=== PATIENT | male | born 1990 | race Caucasian/White ===

== ENCOUNTER 2023-05-05 14:46 | Inpatient (IN) | payer MEDICAID ==
[~2023-05-05] VITALS: Ht 182.9 cm; Wt 149.7 kg
[2023-05-05] MEDS: AZITHROMYCIN 500 MG in DEXTROSE 5% 250 ML IV SCH (00:15)
[2023-05-05 14:51] VITALS: BP 137/81; PULSE 129; RESP 20; TEMP 98; O2SAT 96
[2023-05-05 15:18] LABS: BASOPHILS # (AUTO) 0.1 K/uL (0.00-0.22); BASOPHILS % (AUTO) 0.9 % (0.0-2.0); EOSINOPHILS # (AUTO) 0.1 K/uL (0-0.4); EOSINOPHILS % (AUTO) 2.1 % (0.0-4.0); LYMPHOCYTES # (AUTO) 2.1 K/uL (2.0-11.5); LYMPHOCYTES % (AUTO) 37.2 % (20.5-51.1); MEAN CORPUSCULAR HEMOGLOBIN 31 pg (27-31); MEAN CORPUSCULAR HGB CONC 34 g/dL (33-37); MEAN CORPUSCULAR VOLUME 91.4 fL (80-94); MONOCYTES # (AUTO) 0.5 K/uL (0.8-1.0); NEUTROPHILS # (AUTO) 2.8 K/uL (1.8-7.7); NEUTROPHILS % (AUTO) 50.8 % (42.2-75.2); PLATELET COUNT (AUTO) 137 K/uL (140-450); RED BLOOD CELL COUNT(AUTO) 5.14 MIL/uL (4.20-6.10); RED CELL DISTRIBUTION WIDTH 13.3 % (11.6-13.7); WHITE BLOOD COUNT (AUTO) 5.6 K/uL (4.8-10.8)
[2023-05-05] MEDS: NACL 0.9% 2,000 ML IV ONE (15:20)
[2023-05-05] MEDS: LORazepam 2 MG/ML VIAL IVP ONE (15:21)
[2023-05-05 15:30] LABS: ALANINE AMINOTRANSFERASE 169 U/L (12-78); ALCOHOL, BLOOD < 3 mg/dL (<10); ALKALINE PHOSPHATASE 102 U/L (50-136); ANION GAP 10.4 (8-16); ASPARTATE AMINOTRANSFERASE 130 U/L (15-37); CALCIUM 8.5 mg/dL (8.5-10.1); CARBON DIOXIDE 30.4 mmol/L (21-32); CHLORIDE 100 mmol/L (98-107); GFR ARICAN-AMERICAN 110 mL/min (>90); GFR NON ARICAN-AMERICAN 91 mL/min (>90); GLUCOSE 191 mg/dL (74-106); POTASSIUM 3.8 mmol/L (3.5-5.1); SODIUM SERUM 137 mmol/L (136-145); TOTAL BILIRUBIN 0.5 mg/dL (0.0-1.0); TOTAL PROTEIN, SERUM 8.8 g/dL (6.4-8.2); UREA NITROGEN, BLOOD 8 mg/dL (7-18)
[2023-05-05 17:06] LABS: AMPHETAMINE, URINE POSITIVE ng/ml (NEG <=1000); BARBITURATE, URINE NEGATIVE ng/ml (NEG <=200); BENZODIAZEPINE, URINE NEGATIVE ng/mL (NEG <=200); CANNABINOID, URINE NEGATIVE ng/mL (NEG <=50); COCAINE, URINE NEGATIVE ng/mL (NEG <=300); OPIATE, URINE NEGATIVE ng/mL (NEG <=2000); PHENCYCLIDINE SCREEN,URINE NEGATIVE ng/mL (NEG <=25)
[2023-05-05] MEDS: NACL 0.9% 1,000 ML IV ONE (18:04)
[2023-05-05] MEDS ORDERED: MORPHINE SULFATE 4 MG/ML SYR IVP PRN (19:05)
[2023-05-05] MEDS ORDERED: ACETAMINOPHEN 325 MG TAB PO PRN (19:05)
[2023-05-05] MEDS ORDERED: HYDROcodone/APAP 5/325 MG 1 TAB TAB PO PRN (19:05)
[2023-05-05] MEDS ORDERED: DEXTROSE 50% 50 ML SYR IVP PRN (19:10)
[2023-05-05 20:19] LABS: BLOOD GAS BASE EXCESS -1.3 mmol/L (-2.0-2.0); BLOOD GAS HCO3 23.5 mmol/L (22-26); BLOOD GAS O2 SAT% 97.7 % (92.0-98.5); BLOOD GAS PCO2 39.8 mmHg (35-45); BLOOD GAS PH 7.389 (7.35-7.45); BLOOD GAS PO2 97.8 mmHg (75-100)
[2023-05-05] MEDS: BLOOD GLUCOSE MONITORING 1 DEV DEV FS SCH (21:00)
[2023-05-05] MEDS ORDERED: AZITHROMYCIN 500 MG INJ VIAL IV ONE (23:38)
[2023-05-05] MEDS ORDERED: cefTRIAXone 1,000 MG VIAL ONE (23:38)
[2023-05-06] MEDS ORDERED: GABA400C PO (00:22)
[2023-05-06 07:08] LABS: BASOPHILS % (AUTO) 0.5 % (0.0-2.0); EOSINOPHILS # (AUTO) 0.1 K/uL (0-0.4); HEMATOCRIT 42.6 % (36-52); HEMOGLOBIN 14.6 g/dL (12.0-18.0); LYMPHOCYTES # (AUTO) 2.3 K/uL (2.0-11.5); LYMPHOCYTES % (AUTO) 24.4 % (20.5-51.1); MEAN CORPUSCULAR HEMOGLOBIN 32 pg (27-31); MEAN CORPUSCULAR HGB CONC 34 g/dL (33-37); MEAN CORPUSCULAR VOLUME 91.7 fL (80-94); MONOCYTES # (AUTO) 0.9 K/uL (0.8-1.0); MONOCYTES % (AUTO) 9.4 % (1.7-9.3); NEUTROPHILS % (AUTO) 64.7 % (42.2-75.2); PLATELET COUNT (AUTO) 127 K/uL (140-450); RED BLOOD CELL COUNT(AUTO) 4.65 MIL/uL (4.20-6.10); WHITE BLOOD COUNT (AUTO) 9.3 K/uL (4.8-10.8)
[2023-05-06 07:36] LABS: ALBUMIN 2.6 g/dL (3.4-5.0); CALCIUM 8.2 mg/dL (8.5-10.1); CARBON DIOXIDE 29.9 mmol/L (21-32); CREATININE 0.6 mg/dL (0.6-1.3); POTASSIUM 3.9 mmol/L (3.5-5.1); TOTAL BILIRUBIN 0.8 mg/dL (0.0-1.0); TOTAL PROTEIN, SERUM 7.5 g/dL (6.4-8.2)
[2023-05-06 08:09] LABS: HEPATITIS A ANTIBODY IGM Negative (Negative); HEPATITIS B CORE AB TOTAL Negative (Negative); HEPATITIS B CORE, IGM Negative (Negative); HEPATITIS B SURFACE ANTIBODY Reactive (.); HEPATITIS B SURFACE ANTIGEN Negative (Negative)
[2023-05-06 08:32] VITALS: O2SAT 99
[2023-05-06 08:36] VITALS: BP 133/72; PULSE 104; PULSE 99; RESP 18; TEMP 97.6; O2SAT 95
[2023-05-06 09:00] VITALS: PULSE 99; RESP 18; O2SAT 95
[2023-05-06] MEDS: ENOXAPARIN 40 MG/0.4 ML SYR SUBQ SCH (09:16)
[2023-05-06 12:00] VITALS: BP 126/62; PULSE 85; PULSE 87; RESP 18; TEMP 97.9; O2SAT 93
[2023-05-06] MEDS: INSULIN LISPRO SLIDING SCALE 100 UNITS/ML VIAL SUBQ PRN (12:16)
[2023-05-06 16:00] VITALS: BP 105/60; PULSE 108; PULSE 88; RESP 19; TEMP 97.6; O2SAT 94
[2023-05-06] MEDS: chlordiazePOXIDE 25 MG CAP PO SCH (18:50)
[2023-05-06 20:00] VITALS: BP 109/70; PULSE 87; PULSE 89; RESP 18; TEMP 97.7; O2SAT 97
[2023-05-07] VITALS: BP 105/71; PULSE 88; PULSE 93; RESP 18; TEMP 98.3; O2SAT 97
[2023-05-07 04:00] VITALS: BP 107/67; PULSE 107; PULSE 84; RESP 18; TEMP 98.1; O2SAT 91
[2023-05-07 05:15] LABS: BASOPHILS % (AUTO) 0.7 % (0.0-2.0); EOSINOPHILS # (AUTO) 0.2 K/uL (0-0.4); EOSINOPHILS % (AUTO) 2.7 % (0.0-4.0); HEMATOCRIT 41.8 % (36-52); HEMOGLOBIN 14.6 g/dL (12.0-18.0); LYMPHOCYTES # (AUTO) 2.2 K/uL (2.0-11.5); LYMPHOCYTES % (AUTO) 31.5 % (20.5-51.1); MEAN CORPUSCULAR HEMOGLOBIN 32 pg (27-31); MEAN CORPUSCULAR HGB CONC 35 g/dL (33-37); MEAN CORPUSCULAR VOLUME 90.4 fL (80-94); MONOCYTES # (AUTO) 0.7 K/uL (0.8-1.0); MONOCYTES % (AUTO) 10.3 % (1.7-9.3); NEUTROPHILS # (AUTO) 3.8 K/uL (1.8-7.7); NEUTROPHILS % (AUTO) 54.8 % (42.2-75.2); PLATELET COUNT (AUTO) 116 K/uL (140-450); RED BLOOD CELL COUNT(AUTO) 4.63 MIL/uL (4.20-6.10); RED CELL DISTRIBUTION WIDTH 13.1 % (11.6-13.7); WHITE BLOOD COUNT (AUTO) 6.9 K/uL (4.8-10.8)
[2023-05-07] MEDS ORDERED: METF-1253 PO (08:02)
[2023-05-07] MEDS ORDERED: NALO4SPR NS (08:02)
[2023-05-07 08:39] VITALS: PULSE 93
[2023-05-07 08:44] VITALS: BP 115/81; PULSE 94; RESP 18; TEMP 98.1; O2SAT 93
[2023-05-07 09:26] VITALS: PULSE 106; RESP 15; O2SAT 97
[2023-05-07 09:40] VITALS: BP 115/81; PULSE 106; RESP 16; TEMP 97
== END 2023-05-07 10:08 | disposition home or self-care (01) | DRG 812 ==
LOC: MED 14:46 → MTU 19:08 → MMU 05-06 06:23
PROVIDERS: ADMIT Family Medicine; ATTEND Family Medicine
DX: T40.2X1A Poisoning by other opioids, accidental (unintentional), initial encounter (principal); J96.01 Acute respiratory failure with hypoxia; E44.0 Moderate protein-calorie malnutrition; Z68.41 Body mass index [BMI] 40.0-44.9, adult; F19.10 Other psychoactive substance abuse, uncomplicated; R74.01 Elevation of levels of liver transaminase levels; X58.XXXA Exposure to other specified factors, initial encounter
CPT/HCPCS: 36415; 36600; 71045; 71275; 76700; 80053; 80305; 82803; 82948; 85025; 85379; 86704; 86706; 86708; 86709; 86803; 87040; 87081; 87086; 87340; 93005; 96361; 96374; 99291; G0482; J0456; J0696; J1650; J1815; J2060; J7060; Q0092; Q9967